=== PATIENT | female | born 1990 | race Caucasian/White ===

== ENCOUNTER → 2016-08-21 | Outpatient (CLI) | payer OTHER ==
[~2016-08-21] MED LIST: BCPILLS PO; GLC500 PO
[2016-08-27 13:53] LABS: CHLAMYDIA TRACH RNA*** NOT DETECTED (NOT DETECTED); GC (NEIS GONORRHOEAE)RNA** NOT DETECTED (NOT DETECTED)
== END | disposition home or self-care (01) ==
LOC: C.LABBFT 10:38
PROVIDERS: ATTEND Internal Medicine
DX: A74.9 Chlamydial infection, unspecified (principal)

== ENCOUNTER → 2016-12-07 | Outpatient (CLI) | payer OTHER ==
[2016-12-07 13:46] LABS: CHOLESTEROL/HDL RATIO 1.9
== END ==
LOC: C.LABBFT 09:05
PROVIDERS: ATTEND Physician Assistant Medical
DX: Z00.00 Encounter for general adult medical examination without abnormal findings (principal)

== ENCOUNTER 2017-03-21 17:47 | Emergency (ER) | payer OTHER ==
[~2017-03-21] VITALS: Ht 170.2 cm; Wt 80.6 kg
[2017-03-21 18:01] VITALS: TEMP 36.7; Ht 170.2 cm; Wt 80.6 kg
[2017-03-21 19:06] VITALS: BP 112/72; PULSE 78; O2SAT 100
--- NOTE | 2017-03-22 00:30 | EMERGENCY ROOM VISIT NOTE ---
ED Visit Note First contact with patient: 18:34 Chief Complaint: Blood exposure. History of Present Illness: Ms. Tyson is a 26-year-old white female who ambulates into the ED complaining of a possible blood exposure. 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 She was drawing a patient's blood approximately 30 minutes ago. She reports blood splashed in her face and when she was cleaning up she noticed the blood was close to her mouth. She is unsure if she got blood in her mouth. She reports she cleaned her face of the material prior to coming to the emergency department. She has no other complaints and symptoms at this time. Review of Systems: As noted above in history of present illness. Past Medical History: Diabetes, hypertension, bronchitis and status post wisdom teeth extraction. Current Medications: Glucophage, control. Allergies to Medications: Patient denies. Social History: Patient is currently employed; she feels safe in her home environment; she denies tobacco use. Physical Examination: Vital Signs: Date Time Temp Pulse Resp B/P (MAP) Pulse Ox O2 Delivery O2 Flow Rate FiO2 03/21/17 19:06 78 20 112/72 100 Room Air 03/21/17 18:01 36.7 72 16 119/77 99 Room Air GENERAL: 26-year-old female in no acute distress, nontoxic-appearing, afebrile and hemodynamically stable. NEUROLOGICAL: Awake, alert and oriented to person, place and time. Answering questions appropriately and following commands. SKIN: Warm, dry and pink. No soft tissue eruptions ED Course: Patient is assessed as noted above. Patient's medication list was reviewed. Pretest counseling was provided to the patient. Patient's consent form was reviewed with the patient and she signed it. Patient was sent to the lab for blood work and discharged. Clinical Impression: Work-related blood exposure. Disposition: Patient discharged home in stable condition; prior to departure she was reassessed and still remained symptom-free. Plan: Patient was encouraged to follow-up with [facility] for testing results. Patient was encouraged return ED as needed for any concerning symptoms.
== END 2017-03-21 19:08 | disposition home or self-care (01) ==
LOC: C.EDB 17:49 → C.EDD 19:08
DX: Z77.21 Contact with and (suspected) exposure to potentially hazardous body fluids (principal); Y99.0 Civilian activity done for income or pay

== ENCOUNTER → 2018-03-15 | Outpatient (CLI) | payer OTHER ==
[2018-03-15 17:12] LABS: HEMOGLOBIN 12.9 g/dL (12.0-16.0); MEAN CELL VOLUME 95.7 fL (80-100); MEAN CORPUSCULAR HEMOGLOBIN 30.9 pg (25-34); MEAN CORPUSCULAR HGB CONC 32.3 g/dl (32-36); MEAN PLATELET VOLUME 10.7 fL (7.4-10.4); PLATELET COUNT 271 K/uL (130-400); RED CELL DISTRIBUTION WIDTH CV 12.9 % (11.5-14.5); RED CELL DISTRIBUTION WIDTH SD 45.1 fL (36.4-46.3); WHITE BLOOD COUNT 6.76 K/uL (4.8-10.8)
== END | disposition home or self-care (01) ==
LOC: C.LABBFT 12:20
PROVIDERS: ATTEND Physician Assistant Medical
DX: Z00.00 Encounter for general adult medical examination without abnormal findings (principal); K91.2 Postsurgical malabsorption, not elsewhere classified; E53.8 Deficiency of other specified B group vitamins